=== PATIENT | male | born 1980 | race Hispanic/Latino ===

== ENCOUNTER 2017-06-03 00:29 | Emergency (ER) | payer BC ==
--- NOTE | 2017-06-06 14:37 | EKG ---
Test Reason : NUMBNESS Blood Pressure : / mmHG Vent. Rate : 087 BPM Atrial Rate : 087 BPM P-R Int : 156 ms QRS Dur : 092 ms QT Int : 334 ms P-R-T Axes : 034 056 012 degrees QTc Int : 401 ms Normal sinus rhythm Normal ECG Confirmed by DEREK VALENCIA, LYDIA ([id number]), editor index MARLEE BURK ([id number]) on 06/06/2017 2:37:05 PM Referred By: MARY JANE REED Confirmed By:LYDIA REED MD
== END 2017-06-03 01:10 | disposition home or self-care (01) ==
LOC: ERS 00:29
DX: R20.2 Paresthesia of skin (principal); L40.9 Psoriasis, unspecified
CPT/HCPCS: 93005

== ENCOUNTER 2018-05-07 03:34 | Emergency (ER) | payer BC, SELFPAY ==
[2018-05-07 04:18] LABS: Hemoglobin 15.3 g/dL (14.0-18.0); Mean Corpuscular HGB CONC 35.1 g/dL (32.0-36.0); Mean Corpuscular Volume 93.9 fL (78.0-98.0); Mean Platelet Volume 7.4 fL (7.4-10.4); Platelet Count 203 thou/uL (130-400); Red Blood Cell (RBC) Count 4.65 mill/uL (4.70-6.10); White Blood Cell (WBC) Count 4.4 thou/uL (4.8-10.8)
[2018-05-07 04:19] LABS: ALT (SGPT) 49 U/L (8-55); AST (SGOT) 23 U/L (5-34); Albumin 4.4 g/dL (3.5-5.0); Alkaline Phosphatase 60 U/L (40-150); Anion Gap 13 mmol/L (10-20); BUN (Urea Nitrogen) 7 mg/dL (8.9-20.6); Bilirubin, Total 0.7 mg/dL (0.2-1.2); Calc. Creatinine Clearance 0 mL/min (70-130); Carbon Dioxide 23 mmol/L (22-29); Chloride 106 mmol/L (98-107); Estimated GFR-MDRD Greater than 90; Globulin 3.5 g/dL (2.4-3.5); Glucose 106 mg/dL (70-105); Potassium 3.8 mmol/L (3.5-5.1); Protein, Total 7.9 g/dL (6.0-8.3); Sodium 138 mmol/L (136-145)
[2018-05-07 04:23] LABS: CKMB 1.1 ng/mL (0-6.6); Troponin I Less than 0.010 ng/mL (< 0.028)
[2018-05-07 04:39] LABS: Band 2 % (5-11); Lymphocytes 48 % (21-51); MDiff Complete? YES; Monocytes 12 % (0-10); Neutrophil 38 % (42-75)
--- NOTE | 2018-05-07 08:10 | RAD ---
PORTABLE AP CHEST XRAY: DATE: 05/07/18. HISTORY: Chest pain. COMPARISON: 02/14/14. FINDINGS: Cardiac silhouette is magnified by projection but stable in size compared to the prior study and is a t the upper limits of normal in size. Increased density of the lateral left lung base probably relat ed to epicardial fat pad and was also present on the prior study. Lungs are otherwise clear. Pulmon francesco vasculature is within normal limits. There has been no interval change when compared to the prio r exam. IMPRESSION: No acute cardiopulmonary process. POS: [facility]
== END 2018-05-07 04:42 | disposition home or self-care (01) ==
LOC: ERS 03:34
DX: R07.2 Precordial pain (principal); E78.5 Hyperlipidemia, unspecified
CPT/HCPCS: 71045; 80053; 82553; 84484; 85025; 93005

== ENCOUNTER 2019-05-20 16:30 | Emergency (ER) | payer SELFPAY | END 2019-05-20 17:27 | disposition home or self-care (01) | LOC: ERS 16:30 | DX: G54.0 Brachial plexus disorders (principal); G62.9 Polyneuropathy, unspecified; E78.5 Hyperlipidemia, unspecified | CPT/HCPCS: 93005 ==

== ENCOUNTER 2019-06-14 07:58 | Emergency (ER) | payer SELFPAY ==
[2019-06-14 08:51] LABS: Hemoglobin 15.9 g/dL (14.0-18.0); Mean Corpuscular HGB CONC 35.5 g/dL (32.0-36.0); Mean Corpuscular Hemoglobin 33.4 pg (27.0-31.0); Mean Corpuscular Volume 94.1 fL (78.0-98.0); Mean Platelet Volume 7.4 fL (7.4-10.4); Platelet Count 197 thou/uL (130-400); RBC Distribution Width 11.3 % (11.5-14.5); Red Blood Cell (RBC) Count 4.77 mill/uL (4.70-6.10); White Blood Cell (WBC) Count 4.8 thou/uL (4.8-10.8)
[2019-06-14 09:09] LABS: Band 1 % (5-11); Eosinophils 1 % (0-10); Lymphocytes 48 % (21-51); MDiff Complete? YES; Monocytes 7 % (0-10); Neutrophil 39 % (42-75); RBC Morphology Normal; Reactive Lymphocytes 4 % (0-10)
[2019-06-14 09:20] LABS: ALT (SGPT) 46 U/L (8-55); AST (SGOT) 24 U/L (5-34); Albumin 4.4 g/dL (3.5-5.0); Alkaline Phosphatase 52 U/L (40-110); Anion Gap 13 mmol/L (10-20); BUN (Urea Nitrogen) 11 mg/dL (8.9-20.6); Bilirubin, Total 0.7 mg/dL (0.2-1.2); Calc. Creatinine Clearance 0 mL/min (70-130); Calcium 9.4 mg/dL (7.8-10.44); Carbon Dioxide 24 mmol/L (22-29); Chloride 105 mmol/L (98-107); Estimated GFR-MDRD Greater than 90; Globulin 3.5 g/dL (2.4-3.5); Glucose 98 mg/dL (70-105); Protein, Total 7.9 g/dL (6.0-8.3); Sodium 138 mmol/L (136-145)
[2019-06-14 09:55] LABS: Bilirubin Negative (Negative); Blood, Urine Negative (Negative); Clarity Clear (Clear); Glucose, Urine (Dipstick) Normal (Negative); Leukocyte Negative Leu/uL (Negative); Nitrite Negative (Negative); Protein, Urine (Dipstick) Negative (Neg-Trace); Urobilinogen Normal mg/dL (Less than 2)
[2019-06-14] MEDS ORDERED: Ondansetron PF 4 MG/2 ML Vial ONE (10:07)
[2019-06-14] MEDS ORDERED: Morphine 4 MG/ML VIAL ONE (10:07)
--- NOTE | 2019-06-14 10:34 | CT ---
CT ABDOMEN WITH CONTRAST CT PELVIS WITH CONTRAST: DATE: 06/14/2019. TIME: 9:55 a.m. HISTORY: A 38-year-old male with generalized abdominal pain, nausea, diarrhea, and bloody stools. COMPARISON: 03/06/[address] TECHNIQUE: IV injection of iodinated contrast media: 100 mL Isovue 370. Oral contrast media: Not administered. FINDINGS: The pericolonic fat stranding representing edema involving the edematous cecum on the previous CT is not present on the current CT. However, there is currently milder mural edema of the cecum, and new mural edema of the ascending col on, hepatic flexure, the proximal 2/3 of the transverse colon, and descending colon on the current CT . The sigmoid and rectum, do not appear to be involved. No pericolonic fat stranding. No abscess, pneumoperitoneum, ascites, or small bowel dilation. No colonic diverticulitis. Decompre ssed urinary bladder. No major pathology of the abdominal aorta, kidneys, adrenals, pancreas, liver, or spleen. Mildly enlarged moises hepatis lymph nodes, unchanged. Lung bases are grossly clear. IMPRESSION: Mild colitis, involving the majority of the colon, except for the sigmoid colon and rectum. 2. No other abnormality identified. SYLVAIN Evans POS: [facility]
== END 2019-06-14 11:06 | disposition home or self-care (01) ==
LOC: ERS 07:58
DX: K52.9 Noninfective gastroenteritis and colitis, unspecified (principal); E78.5 Hyperlipidemia, unspecified
CPT/HCPCS: 36415; 74177; 80053; 81003; 83690; 85025; 86140; 96361; 96374; 96375; J2270; J2405